=== PATIENT | female | born 1950 ===

== ENCOUNTER 2023-05-06 12:20 | Outpatient (CLI) | payer MEDICARE | END 2023-05-06 12:21 | disposition home or self-care (01) | LOC: LAB.R 12:20 | PROVIDERS: ATTEND Nurse Practitioner | DX: R21 Rash and other nonspecific skin eruption (principal) | CPT/HCPCS: 87070; 87181; 87205 ==

== ENCOUNTER 2023-05-28 14:07 | Outpatient (CLI) | payer MEDICARE ==
--- NOTE | 2023-05-28 14:57 | Sleep Patient Instructions ---
Sleep Center Visit Summary - Patient Visit Information Reason for Visit: INITIAL CONSULTATION - Patient Instructions Additional Instructions: You will continue with CPAP therapy with pressure set at 13 cmH2O. A supply prescription will be updated with your DME. I have added to update to a new CPAP. Mikayla should be reaching out to you. Please call us to schedule a compliance visit once you have the machine at home. We encourage you to continue to try to lose weight. Please follow up with the sleep care office one month after obtaining new CPAP. - Clinic Information Contact: [facility] [address] [place] [address] [email or web address] T: [phone]
--- NOTE | 2023-05-28 15:05 | SLEEP CARE CONSULTATION ---
Information from patient questionnaire entered by Jackie Flores. I have reviewed and concur with the information entered by Jackie Flores. This document represents the service I personally performed and the decisions made by me, Candace Nichole ARNP. History of Present Illness Service Date and Time: 05/28/2023 1407 Reason for Visit: New patient, Previously diagnosed sleep apnea, sleep apnea on CPAP therapy Chief Complaint: reports: Unrefreshed sleep, Snoring, Excessive daytime sleepiness, Fatigue, Frequent awakenings at night, Other (UPDATE SUPPLIES) Date of Onset: 20YRS Usual bedtime: 11PM Time it takes to fall asleep: 15-20MIN Snores at night: Yes Observed to quit breathing while asleep: Yes Sleeps alone due to snoring: Yes Number of times waking at night: 2 Reasons for waking at night: reports: Bathroom, Other (MASK NOT FITTING WELL, MUSCLE PAIN) Toss, Turn, or Twitch while sleeping: Yes Recalls having dreams: Yes Usually gets out of bed at: 8-9 Feels refreshed in the morning: No Morning headache: Yes Sleepy or fatigued during the day: Yes Ever fallen asleep while driving: No Takes day naps: Yes Dreams during day naps: No Prior sleep studies: Yes Additional HPI information: SUSAN LEAL was previously diagnosed to have very severe, AHI 72, obstructive sleep apnea-hypopnea syndrome as seen in study dated 01/13/2017 through [facility] and comes in today to establish care for CPAP therapy. - Parasomnia Symptoms Ever been unable to move upon waking from sleep: No Walks in sleep: No Talks in sleep: No Ever acted out dreams in sleep: No Ever felt weak in the knees when startled or emotional: No Bothered by creepy, crawly, restless sensations in legs: Yes Problems with memory or concentration: Yes CPAP Compliance Data - Data Reviewed with Patient Average duration of nightly device use: 9 hours 38 minutes Compliance rate %: 99 (89/90 days used) Current pressure setting (cmH2O): 13 Average residual AHI: 3.3 Central apnea: 0 Obstructive apnea: 3.1 Hypopnea: 0.2 Average large leak: 0.5 L/min Compliance data discussion: She has a ResMed Airsense 10 that Mikayla tells her is due to be replaced. She is using a nasal cushion mask, Raad Wisp, small/medium cushion Subjective Patient concerns: reports: mask discomfort, air blowing in eyes, mask leak noise. denies: aerophagia, condensation in mask/hose, nasal congestion, dry mouth, nose, throat, epistaxis Observed to snore while using device: No Current pressure setting perceived as: comfortable On therapy, patient: reports: sleeping better, awakening more refreshed, being more awake and alert during the day, more rested overall. denies: drowsiness while driving Initial [place] Sleepiness Scale score: 6 (05/06/23) Past Medical History Past Medical History: reports: Hypertension, Claustrophobia, Arthritis, Anxiety, Depression, GERD, Other (chronic diarrhea) Social History The patient's occupation is a RE. Patient is and lives in . Have you smoked in the past 12 months: No Alcohol use: No Caffeine use: Yes Caffeine amount and frequency: 8 oz in AM, 1-2 times a week Family History Family history of sleep disordered breathing: Yes Family Hx Sleep Apnea: Sibling: Sleep apnea - Treated Allergies and Home Medications Known drug allergies: No Drug allergies reviewed: Yes Home medication list reviewed: Yes (see list) Allergy and home medication list: Allergies No Known Drug Allergies Allergy (Verified 05/28/23 14:18) Home Medications Cholecalciferol (Vitamin D3) [Vitamin D3] See Rx Instructions .ROUTE .COMPLEX 05/28/23 [History] Colestipol HCl [Colestid] See Rx Instructions .ROUTE .COMPLEX 05/28/23 [History] Lisinopril [Zestril] See Rx Instructions .ROUTE .COMPLEX 05/28/23 [History] Metoprolol Succinate [Toprol Xl] See Rx Instructions .ROUTE .COMPLEX 05/28/23 [History] Omeprazole Magnesium See Rx Instructions .ROUTE .COMPLEX 05/28/23 [History] Review of Systems Weight gain over past 5 years: 20 Cardiovascular: reports: high blood pressure Respiratory: reports: shortness of breath Urinary: reports: incontinence Neurological: reports: headaches, gait or balance problems Endocrine: reports: sluggishness Physical Exam Vital signs obtained and entered by: JACKIE Robb MA Blood Pressure: 124/72 (LEFT ARM) Cuff size: regular Heart Rate: 53 O2 Saturation: 97 Height: 5 ft 1 in Weight: 200 lb 3.2 oz Body Mass Index: 37.8 BMI Classification: Obese Neck circumference: 17 Heart: regular rate and rhythm Lungs: clear bilaterally Impression and Plan 1. Obstructive Sleep Apnea-Hypopnea Syndrome, very severe, with good treatment compliance and good apnea control. On CPAP therapy, the patient has better sleep quality and is more rested overall. She states she would like to change her mask. She is using a Raad Wisp mask. She sleeps on her stomach because of back and shoulder issues. I tried a Raad DreamWisp on her, small cushion, and she felt it would work better for her. I sent a sample home with her to try. She was informed by her DME, Mikayla, that she needed to replace her CPAP. The patients CPAP is over 5 years old and of reasonable use. Thus, the CPAP will be updated. A DWO prescription will be made. Compliance guidelines for new device and follow up discussed. Patient's apnea severity and rationale for treatment to reduce apnea, improve sleep quality and reduce cardiovascular and cerebrovascular events was reviewed. I also reviewed the benefit of consistent device use of CPAP for hypertension, gastric reflux, depression and anxiety. 2. Obesity, unspecified. Currently patients BMI is 37.8. Obesity increases the risk of apnea, CPAP pressure requirements and overall health risks especially cardiovascular and diabetes. Thus patient is advised to lose weight. * Continue auto CPAP pressure at 13 cmH2O * Update machine * Update supplies prescription * Notify me if snoring with mask or feeling that the pressure is too much or too little * Attempt to lose weight * Call this office if any problems using CPAP * Return for follow up one month after obtaining new device, or sooner if concerns arise Counseling Topics: Spare mask, Weight loss health impact Prescriptions: Auto CPAP, Device supplies Visit Type: In Office Time Spent with Patient (minutes): 40 Provider Statement: I spent 100% of the Face to Face Visit with the patient with greater than 50% spent counseling the patient and coordination of care.
[2023-05-28 15:33] VITALS: BP 124/72; O2SAT 97
== END 2023-05-28 14:08 | disposition home or self-care (01) ==
LOC: SC 14:07
PROVIDERS: ATTEND Nurse Practitioner Family
DX: G47.33 Obstructive sleep apnea (adult) (pediatric) (principal); E66.9 Obesity, unspecified; Z68.37 Body mass index [BMI] 37.0-37.9, adult
CPT/HCPCS: 99203; G0463; 99212

== ENCOUNTER 2023-06-23 09:47 | Outpatient (CLI) | payer MEDICARE ==
[2023-06-23 12:02] LABS: BASOPHILS % (AUTO) 0.4 %; EOSINOPHILS # (AUTO) 0.1 10^3/uL (0.0-0.7); EOSINOPHILS % (AUTO) 1.4 %; HCT - HEMATOCRIT 42.5 % (37.0-47.0); LYMPHOCYTES # (AUTO) 1.7 10^3/uL (1.5-3.5); LYMPHOCYTES % (AUTO) 30.1 %; MEAN CORPUSCULAR HEMOGLOBIN 30.2 pg (27.0-31.0); MEAN CORPUSCULAR HGB CONC 32.9 g/dL (32.0-36.0); MEAN CORPUSCULAR VOLUME 91.6 fL (81.0-99.0); MEAN PLATELET VOLUME 10.6 fL (7.9-10.8); MONOCYTES # (AUTO) 0.5 10^3/uL (0.0-1.0); MONOCYTES % (AUTO) 9.6 %; NEUTROPHILS # (AUTO) 3.3 10^3/uL (1.5-6.6); NEUTROPHILS % (AUTO) 58.3 %; PLT - PLATELET COUNT 232 10^3/uL (130-450); RED BLOOD COUNT 4.64 10^6/uL (4.20-5.40); RED CELL DISTRIBUTION WIDTH 13.2 % (12.0-15.0); WHITE BLOOD COUNT 5.7 x10^3/uL (4.8-10.8)
[2023-06-23 12:26] LABS: THYROID STIMULATING HORMONE 1.81 uIU/mL (0.34-5.60)
[2023-06-23 12:40] LABS: ALBUMIN 4.1 g/dL (3.2-5.5); ALBUMIN/GLOBULIN RATIO 1.2 (1.0-2.2); ALKALINE PHOSPHATASE 86 IU/L (42-121); ALT ALANINE AMINOTRANSFERASE 39 IU/L (10-60); AST ASPARTATE AMINOTRANSFERASE 28 IU/L (10-42); BILIRUBIN,TOTAL 0.6 mg/dL (0.2-1.0); BUN - BLOOD UREA NITROGEN 15 mg/dL (6-20); CALCIUM 9.7 mg/dL (8.5-10.3); CARBON DIOXIDE - CO2 29 mmol/L (21-32); CHLORIDE 102 mmol/L (101-111); CHOL/HDL RATIO 2.4 (<4.4); CHOLESTEROL 127 mg/dL; CREATININE 0.8 mg/dL (0.6-1.3); GFR - MDRD 71 (>89); GLUCOSE 100 mg/dL (74-104); HDL CHOLESTEROL 54 mg/dL; LDL CHOLESTEROL,CALCULATED 39 mg/dL; LDL/HDL RATIO 0.7 (<4.4); POTASSIUM 4.2 mmol/L (3.5-4.5); SODIUM 137 mmol/L (135-145); TOTAL PROTEIN 7.4 g/dL (6.4-8.9); TRIGLYCERIDES 172 mg/dL (48-352); VLDL CHOLESTEROL 34 mg/dL
[2023-06-23 14:07] LABS: ESTIMATED AVERAGE GLUCOSE 120 mg/dL (70-100); HEMOGLOBIN A1c% 5.8 % (4.27-6.07)
== END 2023-06-23 09:48 | disposition home or self-care (01) ==
LOC: LAB.N 09:47
PROVIDERS: ATTEND Nurse Practitioner Family
DX: I10 Essential (primary) hypertension (principal); E66.9 Obesity, unspecified; Z13.220 Encounter for screening for lipoid disorders
CPT/HCPCS: 36415; 80053; 80061; 83036; 83721; 84443; 85025

== ENCOUNTER 2023-11-10 13:27 | Outpatient (CLI) | payer MEDICARE ==
--- NOTE | 2023-11-10 13:56 | Sleep Patient Instructions ---
Sleep Center Visit Summary - Patient Visit Information Reason for Visit: 5-month follow-up - Patient Instructions Additional Instructions: You will continue with CPAP therapy with pressure set at 13 cmH2O. A supply prescription for a machine update will be sent to your DME supplier. Please call us once you have your new CPAP to set up compliance follow-up. We encourage you to continue to try to lose weight. Please follow up with the sleep care office one month after obtaining new CPAP. - Clinic Information Contact: [facility] [address] [place] [address] [email or web address] T: [phone]
--- NOTE | 2023-11-10 14:01 | SLEEP CARE CONSULTATION ---
Information from patient questionnaire entered by Ovidio Flores. I have reviewed and concur with the information entered by Ovidio Flores. This document represents the service I personally performed and the decisions made by me, Candace Nichole ARNP. History of Present Illness Service Date and Time: 11/10/2023 1327 Previous diagnosis: Very Severe, Obstructive Sleep Apnea-Hypopnea Syndrome AHI: 72 Reason for follow up: other (5 MONTH F/U NEED MACHINE, NEED TO REORDER MACHINE) Equipment type: CPAP (ResMed Airsense 10) Equipment obtained from: [employer] ([employer]) Mask style: Nasal Mask brand: Respironics (DreamWisp) Backup mask available: Yes Last cushion change: tonight Prior sleep studies: Yes HPI additional information: SUSAN LEAL was diagnosed to have very severe, AHI 72, obstructive sleep apnea-hypopnea syndrome and returned today for CPAP therapy five month follow- up. Sleep Study - Results Prior sleep studies: Yes CPAP Compliance Data - Data Reviewed with Patient Average duration of nightly device use: 9 hours 54 mins Compliance rate %: 98 (128/130 days used) Current pressure setting (cmH2O): 13 Average residual AHI: 1.7 Central apnea: 0 Obstructive apnea: 1.6 Hypopnea: 0.1 Average large leak: 0.1 L/min Subjective Missed days of use due to: reports: travel Patient concerns: reports: mask discomfort (sweat at night), mask leak noise. denies: aerophagia, air blowing in eyes, condensation in mask/hose, nasal congestion, dry mouth, nose, throat, epistaxis Observed to snore while using device: No Current pressure setting perceived as: comfortable On therapy, patient: reports: sleeping better, more rested overall, other (has a lot of stress in life affecting restfulness). denies: drowsiness while driving Initial [place] Sleepiness Scale score: 6 (05/06/23) Current [place] Sleepiness Scale score: 6 (11/10/23) Allergies and Home Medications Known drug allergies: No Drug allergies reviewed: Yes Home medication list reviewed: Yes (Lisinopril) Allergy and home medication list: Allergies No Known Drug Allergies Allergy (Verified 11/08/23 09:10) Review of Systems Review of systems same as previous: Yes (NO CHANGE) Physical Exam Vital signs obtained and entered by: OVIDIO Robb MA Blood Pressure: 191/78 (LEFT ARM) Cuff size: regular Heart Rate: 68 O2 Saturation: 98 Height: 5 ft 1 in Weight: 200 lb 3.2 oz Body Mass Index: 37.8 BMI Classification: Obese Impression and Plan 1. Obstructive Sleep Apnea-Hypopnea Syndrome, very severe, with good treatment compliance and good apnea control. On CPAP therapy, the patient has better sleep quality and is more rested overall. She says she had a phone issue and it messed up her being able to get the phone call from her DME to get set up on a new device after he last appointment. She has a ResMed Airsense 10 that is over 5 years old and of reasonable use. Thus, we will write for the CPAP to be updated. A DWO prescription will be made. Compliance guidelines for new device and follow up discussed. Patient's apnea severity and rationale for treatment to reduce apnea, improve sleep quality and reduce cardiovascular and cerebrovascular events was reviewed. I also reviewed the benefit of consistent device use of CPAP for hypertension, gastric reflux, depression and anxiety. 2. Obesity, unspecified. Currently patients BMI is 37.8. Obesity increases the risk of apnea, CPAP pressure requirements and overall health risks especially cardiovascular and diabetes. Thus patient is advised to lose weight. * Continue CPAP pressure at 11 cmH2O * Update CPAP machine * Notify me if snoring with mask or feeling that the pressure is too much or too little * Attempt to lose weight * Call this office if any problems using CPAP * Return for follow up one month after obtaining new device, or sooner if concerns arise Counseling Topics: Spare mask, Weight loss health impact Prescriptions: Auto CPAP Follow up with Sleep Care in: other (compliance follow up) Visit Type: In Office Time Spent with Patient (minutes): 20 Provider Statement: I spent 100% of the Face to Face Visit with the patient with greater than 50% spent counseling the patient and coordination of care.
[2023-11-10 14:04] VITALS: BP 191/78; O2SAT 98
== END 2023-11-10 13:28 | disposition home or self-care (01) ==
LOC: SC 13:27
PROVIDERS: ATTEND Nurse Practitioner Family
DX: G47.33 Obstructive sleep apnea (adult) (pediatric) (principal); E66.9 Obesity, unspecified; Z68.37 Body mass index [BMI] 37.0-37.9, adult
CPT/HCPCS: 99213; G0463; 99212

== ENCOUNTER 2024-03-01 08:45 | Outpatient (CLI) | payer MEDICARE ==
[2024-03-01 12:51] LABS: CALCIUM 10.3 mg/dL (8.5-10.3); CREATININE 0.8 mg/dL (0.6-1.3); POTASSIUM 4.6 mmol/L (3.5-4.5)
[2024-03-01 12:53] LABS: MICROALBUM/CREATININE RATIO,UR 128.3 ug/mg (<30.0); MICROALBUMIN,URINE 5.9 mg/dL
[2024-03-01 13:21] LABS: ESTIMATED AVERAGE GLUCOSE 114 mg/dL (70-100); HEMOGLOBIN A1c% 5.6 % (4.27-6.07)
== END 2024-03-01 09:00 | disposition home or self-care (01) ==
LOC: LAB.N 08:45
PROVIDERS: ATTEND Physician Assistant
DX: M54.50 Low back pain, unspecified (principal); I10 Essential (primary) hypertension; R73.03 Prediabetes
CPT/HCPCS: 36415; 80048; 82043; 82570; 83036

== ENCOUNTER 2024-04-12 14:36 | Outpatient (CLI) | payer MEDICARE ==
--- NOTE | 2024-04-12 15:17 | Sleep Patient Instructions ---
Sleep Center Visit Summary - Patient Visit Information Reason for Visit: First compliance follow-up - Patient Instructions Additional Instructions: You were here for follow up of CPAP therapy. You will be continued on CPAP therapy with pressure at 13 cmH2O. You should follow up with sleep care in 12 months. You may contact us sooner for any questions or concerns. - Clinic Information Contact: [facility] [address] [place] [id number] [email or web address] T: [phone]
--- NOTE | 2024-04-12 15:20 | SLEEP CARE CONSULTATION ---
Information from patient questionnaire entered by Ovidio Flores. I have reviewed and concur with the information entered by Ovidio Flores. This document represents the service I personally performed and the decisions made by me, Candace Nichole ARNP. History of Present Illness Service Date and Time: 04/12/2024 1436 Previous diagnosis: Very Severe, Obstructive Sleep Apnea-Hypopnea Syndrome AHI: 72 Reason for follow up: first compliance after device update Equipment type: CPAP (ResMed Airsense 10, s/u 11/2023, NEED MACHINE) Equipment obtained from: [employer] (getting supplies) Mask style: Nasal (Wisp) Backup mask available: No Prior sleep studies: Yes HPI additional information: SUSAN LEAL was diagnosed to have very severe, AHI 72, obstructive sleep apnea-hypopnea syndrome and returned today for CPAP therapy first compliance after device update follow-up. Sleep Study - Results Prior sleep studies: Yes CPAP Compliance Data - Data Reviewed with Patient Average duration of nightly device use: 9 HRS 3 MINS Compliance rate %: 93 (03/13/24-04/11/24; 28/30 days used) Current pressure setting (cmH2O): 13 Average residual AHI: 1.5 Central apnea: 0 Obstructive apnea: 0.8 Hypopnea: 0.7 Average large leak: 0.4 L/min Subjective Patient concerns: reports: mask leak noise, dry mouth, nose, throat. denies: aerophagia, mask discomfort, air blowing in eyes, condensation in mask/hose, nasal congestion, epistaxis Observed to snore while using device: No Current pressure setting perceived as: comfortable On therapy, patient: reports: sleeping better, awakening more refreshed, being more awake and alert during the day, more rested overall. denies: drowsiness while driving Initial [place] Sleepiness Scale score: 6 (05/06/23) Current [place] Sleepiness Scale score: 10 (04/12/24) Allergies and Home Medications Known drug allergies: No Drug allergies reviewed: Yes Home medication list reviewed: Yes (Lisinopril) Allergy and home medication list: Allergies No Known Drug Allergies Allergy (Verified 04/10/24 11:03) Review of Systems Review of systems same as previous: Yes (NO CHANGE) Physical Exam Vital signs obtained and entered by: OVIDIO Robb MA Blood Pressure: 172/69 (LEFT ARM) Cuff size: regular Heart Rate: 57 O2 Saturation: 96 Height: 5 ft 1 in Weight: 198 lb 3.2 oz Body Mass Index: 37.4 BMI Classification: Obese Impression and Plan 1. Obstructive Sleep Apnea-Hypopnea Syndrome, very severe, with good treatment compliance and good apnea control. On CPAP therapy, the patient has better sleep quality and is more rested overall. She has significant improvement of her sleep apnea and is satisfied with current CPAP therapy. She does get a little oral dryness and I showed her how to adjust the humidity on her machine. She knows how to adjust humidity and heated hose as needed to reduce oral dryness. She may also need to use a chinstrap if her mouth is coming open and she is oral venting. She voiced understanding. Patient's apnea severity and rationale for treatment to reduce apnea, improve sleep quality and reduce cardiovascular and cerebrovascular events was reviewed. I also reviewed the benefit of consistent device use of CPAP for hypertension, gastric reflux, depression/anxiety, migraines. 2. Obesity, unspecified. Currently patients BMI is 37.4. Obesity increases the risk of apnea, CPAP pressure requirements and overall health risks especially cardiovascular and diabetes. Thus patient is advised to lose weight. * Continue CPAP pressure at 13 cmH2O * Notify me if snoring with mask or feeling that the pressure is too much or too little * Attempt to lose weight * Call this office if any problems using CPAP * Return for follow up in 12 months, or sooner if concerns arise Counseling Topics: Spare mask, Weight loss health impact Follow up with Sleep Care in: 1 year Visit Type: In Office Time Spent with Patient (minutes): 15 Provider Statement: I spent 100% of the Face to Face Visit with the patient with greater than 50% spent counseling the patient and coordination of care.
[2024-04-12 15:31] VITALS: BP 172/69; O2SAT 96
== END 2024-04-12 14:37 | disposition home or self-care (01) ==
LOC: SC 14:36
PROVIDERS: ATTEND Nurse Practitioner Family
DX: G47.33 Obstructive sleep apnea (adult) (pediatric) (principal); E66.9 Obesity, unspecified; Z68.37 Body mass index [BMI] 37.0-37.9, adult
CPT/HCPCS: 99212; G0463